=== PATIENT | female | born 2000 | race African-American/Black ===

== ENCOUNTER 2018-09-14 09:53 | Inpatient (IN) ==
[2018-09-14 10:46] LABS: Basophils % 0.1 % (0.0-0.8); Eosinophils % 0.3 % (0.00-10.9); Hematocrit 30.3 VOL% (35.7-47.0); Hemoglobin 9.5 GM/DL (12.0-16.0); Immature Granulocytes Absolute 0.07 #; Lymphocytes % 28.3 % (21.3-54.2); Mean Corpuscular HGB Conc 31.4 GM/DL (32-36); Mean Corpuscular Hemoglobin 26 PG (27-34); Mean Corpuscular Volume 84.2 FL (87-102); Mean Platelet Volume 11.7 FL (9.6-12.0); Monocytes # 0.8 10*3/uL (0.11-0.8); Monocytes % 10.7 % (1.7-12.7); Neutrophils # 4.2 10*3/uL (1.4-7.4); Neutrophils % 59.6 % (38.7-73.9); Platelet Count 187 T/CUMM (130-400); White Blood Count 7.1 T/CUMM (4-12)
[2018-09-14 11:06] LABS: Alanine Aminotransferase 20 U/L (13-56); Albumin 2.8 G/DL (3.4-5.0); Alkaline Phosphatase 145 U/L (45-117); Aspartate Amino Transferase 20 U/L (0-37); Bilirubin,Direct < 0.100 MG/DL (0.0-0.20); Bilirubin,Total < 0.39 MG/DL (0.2-1.0); Blood Urea Nitrogen 4 MG/DL (7-18); Calcium 8.5 MG/DL (8.5-10.1); Glucose 68 MG/DL (74-106); INR 0.9; Osmolality,Calculated 273.4 MOS/KG (273-304); PT Patient Result 9.3 SECS; Partial Thromboplastin Time 24.1 SECS (0-40); Potassium 3.5 MMOL/L (3.5-5.1); Sodium 140 MMOL/L (136-145); Total Protein 6.7 G/DL (6.4-8.3); Uric Acid 5.2 MG/DL (2.6-6.0)
[2018-09-14] MEDS ORDERED: ACETAMINOPHEN 500 MG TABLET PO PRN (11:27)
[2018-09-14] MEDS ORDERED: AMPICILLIN INJ 2,000 MG in SODIUM CHLORIDE 0.9% 100 ML IV ONE (14:37)
[2018-09-14] MEDS ORDERED: SODIUM CHLORIDE 0.9% 100 ML IV ONE (15:23)
[2018-09-14] MEDS: AMPICILLIN INJ 1,000 MG in SODIUM CHLORIDE 0.9% 100 ML IV SCH ×2 (20:39→23:22)
[2018-09-15] MEDS: AMPICILLIN INJ 1,000 MG in SODIUM CHLORIDE 0.9% 100 ML IV SCH ×4 (03:40→15:09)
[2018-09-15 04:03] LABS: Basophils % 0.4 % (0.0-0.8); Eosinophils % 0.2 % (0.00-10.9); Hematocrit 30.4 VOL% (35.7-47.0); Hemoglobin 9.5 GM/DL (12.0-16.0); Immature Granulocytes % 0.7 %; Immature Granulocytes Absolute 0.06 #; Lymphocytes # 2.3 10*3/uL (1.4-4.0); Lymphocytes % 28.3 % (21.3-54.2); Mean Corpuscular HGB Conc 31.3 GM/DL (32-36); Mean Corpuscular Hemoglobin 27 PG (27-34); Mean Corpuscular Volume 85.6 FL (87-102); Mean Platelet Volume 11.8 FL (9.6-12.0); Monocytes # 0.8 10*3/uL (0.11-0.8); Monocytes % 10.2 % (1.7-12.7); Neutrophils # 4.9 10*3/uL (1.4-7.4); Neutrophils % 60.2 % (38.7-73.9); Platelet Count 173 T/CUMM (130-400); Red Blood Count 3.55 MC/CUMM (3.8-5.5); Red Cell Distribution Width 21.8 % (9.3-17.3); White Blood Count 8.2 T/CUMM (4-12)
[2018-09-15 04:12] LABS: INR 0.9; PT Patient Result 9.7 SECS; Partial Thromboplastin Time 24.4 SECS (0-40)
[2018-09-15 04:35] LABS: Alanine Aminotransferase 20 U/L (13-56); Albumin 2.5 G/DL (3.4-5.0); Alkaline Phosphatase 138 U/L (45-117); Aspartate Amino Transferase 15 U/L (0-37); Bilirubin,Direct < 0.100 MG/DL (0.0-0.20); Bilirubin,Total < 0.39 MG/DL (0.2-1.0); Blood Urea Nitrogen 5 MG/DL (7-18); Calcium 8.2 MG/DL (8.5-10.1); Glucose 76 MG/DL (74-106); Osmolality,Calculated 274.4 MOS/KG (273-304); Potassium 3.8 MMOL/L (3.5-5.1); Sodium 140 MMOL/L (136-145); Total Protein 6.5 G/DL (6.4-8.3); Uric Acid 4.8 MG/DL (2.6-6.0)
[2018-09-15] MEDS ORDERED: ONDANSETRON 4 MG/2 ML VIAL IV PRN (05:56)
[2018-09-15] MEDS ORDERED: BUTORPHANOL 2 MG/ML VIAL IV PRN (05:56)
[2018-09-15] MEDS ORDERED: MEPERIDINE 50 MG/1 ML VIAL IV PRN (05:56)
[2018-09-15] MEDS ORDERED: OXYTOCIN/LR 20 UNIT/1,000 ML BAG IV SCH (06:00)
[2018-09-15] MEDS ORDERED: LACTATED RINGERS 1,000 ML IV SCH (06:00)
[2018-09-15] MEDS ORDERED: CITRIC ACID/SODIUM CITRATE 30 ML UDCUP PO ONE (06:06)
[2018-09-15] MEDS ORDERED: NALOXONE 0.4 MG/ML VIAL IV PRN (06:09)
[2018-09-15] MEDS ORDERED: ePHEDrine 50 MG/ML AMP IV PRN (06:09)
[2018-09-15] MEDS ORDERED: fentaNYL 2 MCG/ROPIV 0.2% EPID 100 ML EPIDURAL SCH (06:30)
[2018-09-15] MEDS ORDERED: FAMOTIDINE 20 MG/2 ML VIAL IV SCH (09:00)
[2018-09-15] MEDS ORDERED: miSOPROStol 200 MCG TABLET ONE (15:38)
[2018-09-15] MEDS ORDERED: METHYLERGONOVINE 0.2 MG/1 ML AMP ONE (15:38)
[2018-09-15] MEDS ORDERED: LIDOCAINE 1% 50 ML VIAL ONE (16:00)
[2018-09-15] MEDS ORDERED: MEASLES/MUMPS/RUBELLA VACCINE 0.5 ML VIAL SUBCUT ONE (17:25)
[2018-09-15] MEDS ORDERED: oxyCODONE/ACETAMINOPHEN 5-325 MG TABLET PO PRN ×2 (17:25)
[2018-09-15] MEDS ORDERED: HYDROCORTISONE 2.5% RECTAL CREAM 30 GM TUBE TOP PRN (17:25)
[2018-09-15] MEDS ORDERED: DIPH/TET/ACEL PERT BOOSTER VACCINE 0.5 ML VIAL IM ONE (17:25)
[2018-09-15] MEDS ORDERED: LANOLIN 50% CREAM 0.3 OZ TUBE TOP PRN (17:25)
[2018-09-15] MEDS ORDERED: RHO(D) IMMUNE GLOBULIN 300 MCG SYRINGE IM ONE (17:25)
[2018-09-15] MEDS ORDERED: BENZOCAINE 20%/MENTHOL 0.5% SPRAY 56 GM CAN TOP PRN (17:25)
[2018-09-15] MEDS ORDERED: ACETAMINOPHEN 325 MG TABLET PO PRN (17:25)
[2018-09-15] MEDS ORDERED: OXYTOCIN/LR 20 UNIT/1,000 ML BAG IV ONE (17:25)
[2018-09-15] MEDS ORDERED: IBUPROFEN 800 MG TABLET PO PRN (17:25)
[2018-09-15] MEDS ORDERED: BISACODYL 10 MG SUPP RECTAL PRN (17:25)
[2018-09-15] MEDS ORDERED: WITCH HAZEL PADS 100/JAR TOP PRN (17:25)
[2018-09-15] MEDS: FERROUS SULFATE 325 MG TABLET PO SCH (20:38)
[2018-09-15] MEDS: LABETALOL 100 MG TABLET PO SCH (20:38)
[2018-09-15] MEDS: DOCUSATE SODIUM 100 MG CAPSULE PO SCH (20:42)
[2018-09-16 05:39] LABS: Basophils % 0.2 % (0.0-0.8); Eosinophils % 0.1 % (0.00-10.9); Hemoglobin 8.9 GM/DL (12.0-16.0); Immature Granulocytes % 0.7 %; Immature Granulocytes Absolute 0.07 #; Lymphocytes # 1.8 10*3/uL (1.4-4.0); Lymphocytes % 17.1 % (21.3-54.2); Mean Corpuscular HGB Conc 31.8 GM/DL (32-36); Mean Corpuscular Hemoglobin 27 PG (27-34); Mean Corpuscular Volume 84.3 FL (87-102); Mean Platelet Volume 11.9 FL (9.6-12.0); Monocytes # 1.1 10*3/uL (0.11-0.8); Monocytes % 9.8 % (1.7-12.7); Neutrophils # 7.8 10*3/uL (1.4-7.4); Neutrophils % 72.1 % (38.7-73.9); Platelet Count 170 T/CUMM (130-400); Red Blood Count 3.32 MC/CUMM (3.8-5.5); White Blood Count 10.8 T/CUMM (4-12)
[2018-09-16] MEDS: FERROUS SULFATE 325 MG TABLET PO SCH ×3 (09:00→21:01)
[2018-09-16] MEDS: MULTIVITAMIN (PRENATAL) TABLET PO SCH (09:00)
[2018-09-16] MEDS: LABETALOL 100 MG TABLET PO SCH ×2 (09:00→21:01)
[2018-09-16] MEDS: DOCUSATE SODIUM 100 MG CAPSULE PO SCH ×2 (09:00→21:01)
[2018-09-17 07:35] VITALS: BP 135/83
[2018-09-17] MEDS: DOCUSATE SODIUM 100 MG CAPSULE PO SCH (08:13)
[2018-09-17] MEDS: MULTIVITAMIN (PRENATAL) TABLET PO SCH (08:13)
[2018-09-17] MEDS: LABETALOL 100 MG TABLET PO SCH (08:13)
[2018-09-17] MEDS: FERROUS SULFATE 325 MG TABLET PO SCH (08:13)
== END 2018-09-17 11:20 | disposition home or self-care (01) | DRG 560 ==
LOC: N.LDOUT 09:53 → N.LD 09:56 → N.OB 09-15 20:34
PROVIDERS: ADMIT Obstetrics & Gynecology; ATTEND Obstetrics & Gynecology

== ENCOUNTER 2021-04-10 05:14 | Inpatient (IN) ==
[2021-04-10] MEDS ORDERED: OXYTOCIN/LR 20 UNIT/1,000 ML BAG IV SCH (05:30)
[2021-04-10] MEDS ORDERED: LACTATED RINGERS 1,000 ML IV SCH (05:30)
[2021-04-10] MEDS ORDERED: ONDANSETRON 4 MG/2 ML VIAL IV PRN (05:30)
[2021-04-10 05:58] LABS: Basophils % 0.3 % (0.0-0.8); Eosinophils % 0.3 % (0.00-10.9); Hemoglobin 10.1 GM/DL (12.0-16.0); Immature Granulocytes % 0.8 %; Immature Granulocytes Absolute 0.06 #; Lymphocytes # 1.8 10*3/uL (1.4-4.0); Lymphocytes % 22.6 % (21.3-54.2); Mean Corpuscular HGB Conc 31.6 GM/DL (32-36); Mean Platelet Volume 11.2 FL (9.6-12.0); Monocytes % 8.1 % (1.7-12.7); Neutrophils % 67.9 % (38.7-73.9); Platelet Count 228 T/CUMM (130-400); Red Blood Count 3.95 MC/CUMM (3.8-5.5); Red Cell Distribution Width 22.4 % (9.3-17.3); White Blood Count 7.8 T/CUMM (4-12)
[2021-04-10 06:31] LABS: Alanine Aminotransferase 13 U/L (13-56); Albumin 2.9 G/DL (3.4-5.0); Alkaline Phosphatase 194 U/L (45-117); Aspartate Amino Transferase 16 U/L (0-37); Bilirubin,Total < 0.39 MG/DL (0.2-1.0); Blood Urea Nitrogen 7 MG/DL (7-18); Calcium 8.8 MG/DL (8.5-10.1); Carbon Dioxide 19 MMOL/L (21-32); Estimated Glom Filtration Rate 158 ML/MIN; Glucose 139 MG/DL (74-106); Potassium 3.9 MMOL/L (3.5-5.1); Sodium 136 MMOL/L (136-145); Total Protein 6.6 G/DL (6.4-8.2)
[2021-04-10] MEDS ORDERED: MEPERIDINE 50 MG/1 ML VIAL IV PRN (10:03)
[2021-04-10] MEDS ORDERED: BUTORPHANOL 2 MG/ML VIAL IV PRN (10:03)
[2021-04-10] MEDS ORDERED: TRANEXAMIC ACID 1,000 MG/10 ML VIAL ONE (16:20)
[2021-04-10] MEDS ORDERED: miSOPROStoL 200 MCG TABLET ONE (16:20)
[2021-04-10] MEDS ORDERED: OXYTOCIN/LR 20 UNIT/1,000 ML BAG IV ONE (16:20)
[2021-04-10] MEDS ORDERED: METHYLERGONOVINE 0.2 MG/1 ML AMP ONE (16:20)
[2021-04-10] MEDS ORDERED: CARBOPROST TROMETHAMINE 250 MCG/ML AMP IM ONE (16:21)
[2021-04-10] MEDS ORDERED: SODIUM CHLORIDE 0.9% 0 ML IV ONE (16:23)
[2021-04-10 18:18] LABS: Cord Venous Blood HCO3 21.7 MMOL/L; Cord Venous Blood PCO2 41.9 MMHG; Cord Venous Blood PO2 24.9 MMHG
[2021-04-11] MEDS ORDERED: MEASLES/MUMPS/RUBELLA VACCINE 0.5 ML VIAL SUBCUT ONE (00:17)
[2021-04-11] MEDS ORDERED: WITCH HAZEL PADS 100/JAR TOP PRN (00:17)
[2021-04-11] MEDS ORDERED: HYDROCORTISONE 2.5% RECTAL CREAM 30 GM TUBE TOP PRN (00:17)
[2021-04-11] MEDS ORDERED: IBUPROFEN 800 MG TABLET PO PRN (00:17)
[2021-04-11] MEDS ORDERED: RHO(D) IMMUNE GLOBULIN 300 MCG SYRINGE IM ONE (00:17)
[2021-04-11] MEDS ORDERED: OXYTOCIN/LR 20 UNIT/1,000 ML BAG IV ONE (00:17)
[2021-04-11] MEDS ORDERED: oxyCODONE/ACETAMINOPHEN 5-325 MG TABLET PO PRN ×2 (00:17)
[2021-04-11] MEDS ORDERED: DIPH/TET/ACEL PERT BOOSTER VACCINE 0.5 ML VIAL IM ONE (00:17)
[2021-04-11] MEDS ORDERED: BENZOCAINE 20%/MENTHOL 0.5% SPRAY 56 GM CAN TOP PRN (00:17)
[2021-04-11] MEDS ORDERED: ACETAMINOPHEN 325 MG TABLET PO PRN (00:17)
[2021-04-11] MEDS ORDERED: LANOLIN 50% CREAM 0.3 OZ TUBE TOP PRN (00:17)
[2021-04-11] MEDS ORDERED: BISACODYL 10 MG SUPP RECTAL PRN (00:17)
[2021-04-11] MEDS ORDERED: DOCUSATE SODIUM 100 MG CAPSULE PO SCH (00:17)
[2021-04-11] MEDS ORDERED: IBUPROFEN 100 MG/5 ML UDCUP PO PRN (00:19)
[2021-04-11 05:33] LABS: Basophils % 0.1 % (0.0-0.8); Eosinophils % 0.1 % (0.00-10.9); Hematocrit 31.4 VOL% (35.7-47.0); Hemoglobin 9.4 GM/DL (12.0-16.0); Immature Granulocytes % 0.6 %; Immature Granulocytes Absolute 0.09 #; Lymphocytes # 1.7 10*3/uL (1.4-4.0); Lymphocytes % 11.6 % (21.3-54.2); Mean Corpuscular HGB Conc 29.9 GM/DL (32-36); Mean Platelet Volume 11.3 FL (9.6-12.0); Monocytes % 8.5 % (1.7-12.7); Neutrophils % 79.1 % (38.7-73.9); Platelet Count 207 T/CUMM (130-400); Red Blood Count 3.83 MC/CUMM (3.8-5.5); White Blood Count 14.6 T/CUMM (4-12)
[2021-04-11] MEDS ORDERED: FERROUS SULFATE 325 MG TABLET PO SCH (09:00)
[2021-04-11] MEDS: DOCUSATE SODIUM 100 MG/10 ML UDCUP PO SCH ×2 (09:49→21:22)
[2021-04-11] MEDS: ACETAMINOPHEN/CODEINE 120-12 MG/5 ML 12.5 ML UDCUP PO PRN (12:36)
[2021-04-12] MEDS: ACETAMINOPHEN/CODEINE 120-12 MG/5 ML 12.5 ML UDCUP PO PRN (00:13)
[2021-04-12 08:47] VITALS: BP 114/81
[2021-04-12] MEDS ORDERED: FERROUS SULFATE 300 MG/5 ML UDCUP PO SCH (09:05)
[2021-04-12] MEDS: DOCUSATE SODIUM 100 MG/10 ML UDCUP PO SCH (10:05)
== END 2021-04-12 12:24 | disposition home or self-care (01) | DRG 560 ==
LOC: N.LD 05:14 → N.OB 23:28
PROVIDERS: ADMIT Obstetrics & Gynecology; ATTEND Obstetrics & Gynecology